=== PATIENT | female | born 1965 | race Two or more races ===

== ENCOUNTER 2024-11-13 09:04 | Outpatient (CLI) | payer OTHER ==
[~2024-11-13 09:04] MED LIST: NO TOMA MEDICAMENTOS
== END 2024-11-13 09:11 | disposition home or self-care (01) ==
LOC: SONOGRAMA 09:04
DX: R19.5 Other fecal abnormalities (principal); D18.03 Hemangioma of intra-abdominal structures; K76.0 Fatty (change of) liver, not elsewhere classified; K62.5 Hemorrhage of anus and rectum